=== PATIENT | male | born 1970 | race Caucasian/White ===

== ENCOUNTER 2023-12-02 13:36 | Outpatient (CLI) | payer OTHER, SELFPAY ==
--- NOTE | ~2023-12-02 | CT_ITS ---
EXAMINATION: CT knee RT wo con DATE: 12/02/2023 14:00 INDICATION: Right knee injury and laceration and contusion and pain. TECHNIQUE: Computed tomography (CT) of the right knee was performed without intravenous contrast. Aut omated exposure control and iterative reconstruction technique were employed. The dose-length product was 205.95 mGy-cm. COMPARISON: None FINDINGS: Bone alignment is normal. No fracture. There is mild tricompartmental osteoarthritis charac terized by tiny osteophytes. There is a small knee joint effusion. There is a small Mallory's cyst. The re is anterior knee soft tissue swelling. IMPRESSION: 1. Mild right knee osteoarthritis. 2. Small right knee joint effusion. 3. Small Mallory's cyst. Reviewed, dictated and finalized at location A.
== END 2023-12-02 13:37 ==
DX: S81.011A Laceration without foreign body, right knee, initial encounter (principal); M71.21 Synovial cyst of popliteal space [Baker], right knee; M17.11 Unilateral primary osteoarthritis, right knee; M25.461 Effusion, right knee
CPT/HCPCS: 73700